=== PATIENT | male | born 1990 | race African-American/Black ===

== ENCOUNTER 2020-09-03 01:03 | Emergency (ER) | payer OTHER ==
[~2020-09-03] VITALS: Ht 165.1 cm; Wt 74.8 kg
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
[2020-09-03 01:22] VITALS: BP 118/80
[2020-09-03 01:25] VITALS: BP 119/87
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
== END 2020-09-03 01:25 ==
LOC: EMR 01:18
DX: S80.12XA Contusion of left lower leg, initial encounter (principal); V03.99XA Pedestrian with other conveyance injured in collision with car, pick-up truck or van, unspecified whether traffic or nontraffic accident, initial encounter; Y92.9 Unspecified place or not applicable
CPT/HCPCS: 99283